=== PATIENT | female | born 1955 | race Caucasian/White ===

== ENCOUNTER → 2018-04-05 15:47 | Outpatient (CLI) | payer OTHER, SELFPAY ==
--- NOTE | 2018-04-05 15:47 | DT_ITS ---
This patient was seen during an EMR downtime April 03, 2018 - April 10, 2018. This patient may have a combination of paper and electronic documentation or all paper documentation. All documentation is viewable within the e-chart portion of [employer] for each patient visit.
--- NOTE | 2018-04-05 15:47 | DT_ITS ---
This patient was seen during an EMR downtime April 03, 2018 - April 10, 2018. This patient may have a combination of paper and electronic documentation or all paper documentation. All documentation is viewable within the e-chart portion of [employer] for each patient visit.
[2018-04-10 04:27] LABS: White Blood Count 8.2 K/mm3 (4.4-11.0)
[2018-04-10 04:28] LABS: Absolute Lymphocyte Count 2.32 X10^3/ul (0.83-4.51); Absolute Neutrophil Count 5.2 X10^3/uL (2.0-7.7); Basophil% 0.1 % (0-1); Eosinophils% 1.5 % (0-5); Hematocrit 42.3 % (37-47); Hemoglobin 12.9 g/dl (12.0-15.0); Lymphocyte # 2.32 X10^3/ul (4.0); Lymphocyte % 28.4 % (19-41); Mean Corp Hgb Conc 30.5 g/gl (32-36); Mean Corpuscular Hgb 28.3 pg (27.0-32.0); Mean Corpuscular Volume 92.8 fL (81-99); Mean Platelet Vol. 10.7 fl (6.2-12.0); Neutrophil # 5.21 X10^3/uL (2.7-7.7); Neutrophil % 63.8 % (47-70); POSITIVE COUNT NO; POSITIVE DIFFERENTIAL NO; POSITIVE MORPHOLOGY NO; Platelet Count 304 K/mm3 (150-450); RBC Distribution Width CV 14.3 % (11.6-14.6); RBC Distribution Width SD 46.7 fl (35.1-43.9); Red Blood Count 4.56 M/mm3 (4.2-5.4)
[2018-04-10 12:16] LABS: Vitamin B12 282 pg/mL (211-911); Vitamin D,25 Hydroxy 17.6 ng/mL (29.95-100.01)
[2018-04-10 16:20] LABS: BUN 15 mg/dL (7-18); BUN/Creat Ratio 21.1 RATIO (10-20); Creatinine, Serum 0.71 mg/dL (0.55-1.02); EST Glomerular Filtration Rate 88 mL/min (>60); Est Glom Filt Rate - Afr Amer 107 mL/min (>60); Glucose 85 mg/dL (74-106)
[2018-04-10 16:21] LABS: ALB/GLOB Ratio 0.9 RATIO (0.9-2.4); AST(SGOT) 22 U/L (15-37); Alanine Aminotransfer ALT/SGPT 31 U/L (13-56); Albumin, Serum 3.4 g/dL (3.2-5.0); Alkaline Phosphatase 136 U/L (45-117); Anion Gap 8 (5-15); Calcium,Total 8.5 mg/dL (8.5-10.1); Chloride 111 mmol/L (98-107); Ferritin 8 ng/mL (8-252); Globulin 3.8 g/dL (2.2-4.2); Iron 45 ug/dL (50-170); Potassium 4.2 mmol/L (3.5-5.1); Protein, Total 7.2 g/dL (6.4-8.2); Sodium Level 144 mmol/L (136-145); T4 Free Direct 0.88 ng/dL (0.76-1.46)
== END ==
PROVIDERS: Family Provider Family Medicine; PCP Family Medicine; Visit Provider Family Medicine
DX: E03.9 Hypothyroidism, unspecified (principal); M79.7 Fibromyalgia; D50.9 Iron deficiency anemia, unspecified; M25.50 Pain in unspecified joint; R53.83 Other fatigue; E55.9 Vitamin D deficiency, unspecified; E53.8 Deficiency of other specified B group vitamins
CPT/HCPCS: 36415; 80053; 82306; 82607; 82728; 83540; 84439; 84443; 85025

== ENCOUNTER → 2018-07-31 14:06 | Outpatient (CLI) | payer OTHER, SELFPAY ==
--- NOTE | 2018-07-31 14:09 | BI_ITS ---
MAMMOGRAPHY - BILATERAL SCREENING REASON FOR EXAM: Female, 63 years old. Routine annual screening examination. PERTINENT HISTORY: Sister with breast cancer. Bilateral breast reduction and breast implants. TECHNIQUE: Digital bilateral breast eliud (3D mammographic acquisition) in the CC and MLO projections. 2-D mediolateral oblique (MLO) and craniocaudad (CC) views of both breasts were obtained. CAD: Full Field Digital Mammography with Computer Added Detection was performed. COMPARISON: Comparison is made with prior examination dated April 21, 2016 and January 15, 2015. FINDINGS: Breast Composition: The breasts are almost entirely fatty. There are no dominant masses or suspicious calcifications. Stable appearance of the bilateral breast implants. No other significant abnormalities are identified. There has been no significant change since the prior study. BI/SCREENING MAMM (CAD), BILAT IMPRESSION: Stable bilateral screening mammogram. Yearly follow-up mammogram recommended. (A) ASSESSMENT CATEGORY: BIRADS Category 2: Benign. A letter regarding these results will be sent to the patient by the facility within 30 days. Approximately 10% of breast cancers are not detected by mammography. A normal mammogram should not delay biopsy of a clinically suspicious abnormality. [id number] Electronically Signed: Jan Wang MD at 15:43 EDT Tel [phone], Service support ,
== END ==
PROVIDERS: Family Provider Family Medicine; PCP Family Medicine; Visit Provider Family Medicine
DX: Z12.31 Encounter for screening mammogram for malignant neoplasm of breast (principal)
CPT/HCPCS: 77063; 77067

== ENCOUNTER → 2018-09-29 14:34 | Outpatient (CLI) | payer OTHER, SELFPAY ==
[2018-09-29 17:21] LABS: Absolute Lymphocyte Count 2.44 X10^3/ul (0.83-4.51); Absolute Neutrophil Count 6.3 X10^3/uL (2.0-7.7); Basophil# 0.02 X10^3/uL; Basophil% 0.2 % (0-1); Eosinophil# 0.22 X10^3/uL; Eosinophils% 2.3 % (0-5); Hematocrit 44.2 % (37-47); Hemoglobin 13.9 g/dl (12.0-15.0); Lymphocyte # 2.44 X10^3/ul (4.0); Lymphocyte % 25.4 % (19-41); Mean Corp Hgb Conc 31.4 g/gl (32-36); Mean Corpuscular Hgb 29.9 pg (27.0-32.0); Mean Corpuscular Volume 95.1 fL (81-99); Mean Platelet Vol. 10.3 fl (6.2-12.0); Monocyte# 0.59 X10^3/uL; Monocyte% 6.1 % (0-10); Neutrophil # 6.33 X10^3/uL (2.7-7.7); Neutrophil % 65.9 % (47-70); Platelet Count 286 K/mm3 (150-450); RBC Distribution Width CV 13.5 % (11.6-14.6); RBC Distribution Width SD 46.6 fl (35.1-43.9); Red Blood Count 4.65 M/mm3 (4.2-5.4); White Blood Count 9.6 K/mm3 (4.4-11.0)
[2018-09-29 17:24] LABS: POSITIVE COUNT NO; POSITIVE DIFFERENTIAL NO; POSITIVE MORPHOLOGY NO
[2018-09-29 17:39] LABS: Vitamin B12 894 pg/mL (211-911); Vitamin D,25 Hydroxy 61.3 ng/mL (29.95-100.01)
[2018-09-29 17:44] LABS: Ferritin 62 ng/mL (8-252); T4 Free Direct 0.86 ng/dL (0.76-1.46); Thyroid Stim Hormone (TSH) 1.25 uIU/mL (0.358-3.74)
--- OUTSIDE RECORDS SUMMARY | 2018-11-24 14:03 | XMS RPT_ITS ---
:1955 Author Organization [facility] Care Team Providers Name Role Phone Payal Ny Attending Unavailable Payal Ny Referring Unavailable Malys, Payal Primary Care Unavailable Malys, Payal Attending Unavailable Malys, Payal Primary Care Unavailable Danielle Gracia Attending Unavailable Malys, Payal Primary Care Unavailable PROBLEMS PROBLEMS DATE TYPE CONDITION / CODE ATTENDING STATUS SOURCE 09/29/2018 Unknown E03.9 - Miedel, Danielle Active [place] Hypothyroidism, Community unspecified / Hospital E03.9(ICD-10) Repository 09/29/2018 Unknown D50.9 - Iron Miedel, Danielle Active [place] deficiency Community anemia, Hospital unspecified / Repository D50.9(ICD-10) 09/29/2018 Unknown E55.9 - Vitamin D Miedel, Danielle Active [place] deficiency, Community unspecified / Hospital E55.9(ICD-10) Repository 09/29/2018 Unknown E53.8 - Miedel, Danielle Active [place] Deficiency of Community other specified B Hospital group vitamins / Repository E53.8(ICD-10) PROCEDURES PROCEDURES No Procedure Records FoundRESULTS RESULTS CBC W/DIFF, AUTOMATED Collected: 09/29/2018 Status: F Source: [place] 2:36 PM [facility] REPOSITORY TYPE CODE TESTS RESULT OUT OF RANGE REFERENCE UNITS LAB L100.1000 4.4-11.0 K/mm3 Normal WBC 9.6 LAB L100.1200 4.2-5.4 M/mm3 Normal RBC 4.65 LAB L100.1300 12.0-15.0 g/dl Normal HGB 13.9 LAB L100.1400 37-47 % Normal HCT 44.2 LAB L100.1500 81-99 fL Normal MCV 95.1 LAB L100.1600 27.0-32.0 pg Normal MCH 29.9 LAB L100.1700 32-36 g/gl Low MCHC 31.4 LAB L100.1810 11.6-14.6 % Normal RDW CV 13.5 LAB L100.1820 35.1-43.9 fl High RDW SD 46.6 LAB L100.1900 150-450 K/mm3 Normal PLT 286 LAB L100.2000 6.2-12.0 fl Normal MPV 10.3 LAB L100.2100 47-70 % Normal NEUT% 65.9 LAB L100.2200 19-41 % Normal LY% 25.4 LAB L100.2300 0-10 % Normal MONO% 6.1 LAB L100.2400 0-5 % Normal EO% 2.3 LAB L100.2500 0-1 % Normal BASO% 0.2 LAB L100.2550 0.0-0.9 % Normal IM GRAN % 0.100 Result Comment: IG% - Immature Granulocytes (promyelocytes, myelocytes and metamyelocytes) > 1% indicates that a LEFT SHIFT is Present. LAB L100.2620 2.0-7.7 X10 3/uL Normal Absolute Neut 6.3 LAB L100.2720 0.83-4.51 X10 3/ul Normal Absolute Lymph 2.44 Performed By: #### L100.0100 #### [facility] [place], [address] VITAMIN B12 Collected: 09/29/2018 Status: F Source: JESSICA 2:36 PM [facility] REPOSITORY TYPE CODE TESTS RESULT OUT OF RANGE REFERENCE UNITS LAB L503.0105 211-911 pg/mL Normal Vitamin B12 894 Performed By: #### L503.0105, L506.1000 #### [facility] [address] [place], [address] VITAMIN D,25 HYDROXY Collected: 09/29/2018 Status: F Source: JESSICA 2:36 PM [facility] REPOSITORY TYPE CODE TESTS RESULT OUT OF RANGE REFERENCE UNITS LAB L506.1000 29.95-100.01 ng/mL Normal Vitamin D 61.3 25-OH Result Comment: Vitamin D 25(OH) Status Range Deficiency <20 ng/mL (50nmol/L) Insuffciency 20 - 30 ng/mL (50 - 75 nmol/L) Sufficiency 30 - 100 ng/mL (75 - 250 nmol/L) Toxicity >100 ng/mL (>250 nmol/L) Performed By: #### L503.0105, L506.1000 #### [facility] [address] [place], [address] THYROID STIM HORMONE Collected: 09/29/2018 Status: F Source: JESSICA (TSH) 2:36 PM [facility] REPOSITORY TYPE CODE TESTS RESULT OUT OF RANGE REFERENCE UNITS LAB L501.9520 0.358-3.74 uIU/mL Normal TSH 1.25 Performed By: #### L501.9520, L503.6550, L506.0400 #### [facility] [address] [place], [address] FERRITIN Collected: 09/29/2018 Status: F Source: JESSICA 2:36 PM [facility] REPOSITORY TYPE CODE TESTS RESULT OUT OF RANGE REFERENCE UNITS LAB L503.6550 8-252 ng/mL Normal FERRITIN 62 Performed By: #### L501.9520, L503.6550, L506.0400 #### [facility] [address] [place], [address] T4 FREE DIRECT Collected: 09/29/2018 Status: F Source: JESSICA 2:36 PM [facility] REPOSITORY TYPE CODE TESTS RESULT OUT OF RANGE REFERENCE UNITS LAB L506.0400 0.76-1.46 ng/dL Normal T4 FREE 0.86 DIRECT Performed By: #### L501.9520, L503.6550, L506.0400 #### [facility] [address] [place], [address] SCREENING MAMM (CAD), Observed: 07/31/2018 Status: F Source: [place] BILAT 2:09 PM [facility] REPOSITORY [facility] Imaging Services [address] [place] [address] SCREENING MAMM (CAD), BILAT MR#: [id number] Acct: [id number] Name: ENRICO LINDSEY Rep #: [id number] : 1955 F 63 From: Jan Wang MD PCP: Payal Ny DO Status: REG CLI Study: SCREENING MAMM (CAD), BILAT Date of Exam: 07/31/18 Exam# [id number] Ordering Dr: Payal Ny DO MAMMOGRAPHY - BILATERAL SCREENING REASON FOR EXAM: Female, 63 years old. Routine annual screening examination. PERTINENT HISTORY: Sister with breast cancer. Bilateral breast reduction and breast implants. TECHNIQUE: Digital bilateral breast eliud (3D mammographic acquisition) in the CC and MLO projections. 2-D mediolateral oblique (MLO) and craniocaudad (CC) views of both breasts were obtained. CAD: Full Field Digital Mammography with Computer Added Detection was performed. COMPARISON: Comparison is made with prior examination dated April 21, 2016 and January 15, 2015. FINDINGS: Breast Composition: The breasts are almost entirely fatty. There are no dominant masses or suspicious calcifications. Stable appearance of the bilateral breast implants. No other significant abnormalities are identified. There has been no significant change since the prior study. BI/SCREENING MAMM (CAD), BILAT IMPRESSION: Stable bilateral screening mammogram. Yearly follow-up mammogram recommended. (A) ASSESSMENT CATEGORY: BIRADS Category 2: Benign. A letter regarding these results will be sent to the patient by the facility within 30 days. Approximately 10% of breast cancers are not detected by mammography. A normal mammogram should not delay biopsy of a clinically suspicious abnormality. [id number] Electronically Signed: Jan Wang MD at 15:43 EDT Tel [phone], Service support , CC: Payal Ny DO Waybill Clerk: Signed DOWNTIME REPORT Observed: 04/20/2018 Status: F Source: JESSICA 2:48 PM [facility] REPOSITORY [facility] Medical Records Department [address] [place] [address] Downtime Report MR#: [id number] Acct: [id number] Name: ENRICO LINDSEY Mathew Rep #: [id number] : 1955 63 From: Juan C Hagen PCP: Payal Ny DO Status: REG CLI This patient was seen during an EMR downtime April 03, 2018 - April 10, 2018. This patient may have a combination of paper and electronic documentation or all paper documentation. All documentation is viewable within the e-chart portion of [employer] for each patient visit. DOWNTIME REPORT Observed: 04/20/2018 Status: F Source: JESSICA 2:35 PM [facility] REPOSITORY [facility] Medical Records Department [address] [place] [address] Downtime Report MR#: [id number] Acct: [id number] Name: ENRICO LINDSEY Rep #: [id number] : 1955 63 From: Juan C Hagen PCP: Payal Ny DO Status: REG CLI This patient was seen during an EMR downtime April 03, 2018 - April 10, 2018. This patient may have a combination of paper and electronic documentation or all paper documentation. All documentation is viewable within the e-chart portion of [employer] for each patient visit. VITAMIN B12 Collected: 04/05/2018 Status: F Source: JESSICA 3:47 PM [facility] REPOSITORY TYPE CODE TESTS RESULT OUT OF RANGE REFERENCE UNITS LAB L503.0105 211-911 pg/mL Normal Vitamin B12 282 Performed By: #### L503.0105, L506.1000 #### [facility] [address] [place], [place], [address] VITAMIN D,25 HYDROXY Collected: 04/05/2018 Status: F Source: [place] 3:47 PM [facility] REPOSITORY TYPE CODE TESTS RESULT OUT OF REFERENCE UNITS RANGE LAB L506.1000 29.95-100.01 ng/mL Low Vitamin D 17.6 25-OH Result Comment: Vitamin D 25(OH) Status Range Deficiency <20 ng/mL (50nmol/L) Insuffciency 20 - 30 ng/mL (50 - 75 nmol/L) Sufficiency 30 - 100 ng/mL (75 - 250 nmol/L) Toxicity >100 ng/mL (>250 nmol/L) Performed By: #### L503.0105, L506.1000 #### [facility] [address] [place], [address] COMPREHENSIVE METABOLIC Collected: 04/05/2018 Status: F Source: [facility] 3:47 PM [facility] REPOSITORY Order Comment: RESULT(S) PREVIOUSLY REPORTED ON MANUAL REQUISITION DURING DOWNTIME. TYPE CODE TESTS RESULT OUT OF RANGE REFERENCE UNITS LAB L501.0100 74-106 mg/dL Normal GLU 85 Result Comment: Please note revised GLUCOSE reference range effective 2017. LAB L501.1000 7-18 mg/dL Normal BUN 15 LAB L501.1100 0.55-1.02 mg/dL Normal CREAT,SERUM 0.71 Result Comment: The validity of the calculated GFR AND GFRAA in patients over 70 years has not been determined. Clinical correlation is essential. LAB L501.1110 >60 mL/min Normal EST GFR 88 LAB L501.1115 >60 mL/min Normal EST GFR - AA 107 LAB L501.1300 10-20 RATIO High BUN/CRE 21.1 LAB L501.1500 6.4-8.2 g/dL Normal T PROT 7.2 LAB L501.1800 3.2-5.0 g/dL Normal ALB 3.4 LAB L501.1950 2.2-4.2 g/dL Normal GLOB 3.8 LAB L501.2000 0.9-2.4 RATIO Normal A/G 0.9 LAB L501.2200 8.5-10.1 mg/dL Normal CA 8.5 LAB L501.4100 15-37 U/L Normal AST 22 LAB L501.4305 45-117 U/L High ALK P 136 LAB L501.4405 13-56 U/L Normal ALT 31 LAB L501.4600 0.20-1.00 mg/dL Normal T BILI 0.20 LAB L501.5300 136-145 mmol/L Normal NA 144 LAB L501.5600 3.5-5.1 mmol/L Normal K 4.2 LAB L501.5900 98-107 mmol/L High CL 111 LAB L501.6100 21.0-32.0 mmol/L Normal CO2 25.0 LAB L501.6200 5-15 Normal GAP 8 Performed By: #### L500.4050, L501.9520, L503.6150, L503.6550, L506.0400 #### [facility] [place], [place], [address] THYROID STIM HORMONE Collected: 04/05/2018 Status: F Source: [place] (TSH) 3:47 PM [facility] REPOSITORY Order Comment: RESULT(S) PREVIOUSLY REPORTED ON MANUAL REQUISITION DURING DOWNTIME. TYPE CODE TESTS RESULT OUT OF RANGE REFERENCE UNITS LAB L501.9520 0.358-3.74 uIU/mL High TSH 4.50 Performed By: #### L500.4050, L501.9520, L503.6150, L503.6550, L506.0400 #### [facility] [address] [facility] [place], [place], [id number] IRON Collected: 04/05/2018 Status: F Source: [place] 3:47 PM [facility] REPOSITORY Order Comment: RESULT(S) PREVIOUSLY REPORTED ON MANUAL REQUISITION DURING DOWNTIME. TYPE CODE TESTS RESULT OUT OF RANGE REFERENCE UNITS LAB L503.6150 50-170 ug/dL Low IRON 45 Performed By: #### L500.4050, L501.9520, L503.6150, L503.6550, L506.0400 #### [facility] [address] [place], [address] FERRITIN Collected: 04/05/2018 Status: F Source: [place] 3:47 PM [facility] REPOSITORY Order Comment: RESULT(S) PREVIOUSLY REPORTED ON MANUAL REQUISITION DURING DOWNTIME. TYPE CODE TESTS RESULT OUT OF RANGE REFERENCE UNITS LAB L503.6550 8-252 ng/mL Normal FERRITIN 8 Performed By: #### L500.4050, L501.9520, L503.6150, L503.6550, L506.0400 #### [facility] [address] [place], [address] T4 FREE DIRECT Collected: 04/05/2018 Status: F Source: [place] 3:47 PM [facility] REPOSITORY Order Comment: RESULT(S) PREVIOUSLY REPORTED ON MANUAL REQUISITION DURING DOWNTIME. TYPE CODE TESTS RESULT OUT OF RANGE REFERENCE UNITS LAB L506.0400 0.76-1.46 ng/dL Normal T4 FREE 0.88 DIRECT Performed By: #### L500.4050, L501.9520, L503.6150, L503.6550, L506.0400 #### [facility] [address] [facility] [place], [address] CBC W/DIFF, AUTOMATED Collected: 04/05/2018 Status: F Source: [place] 3:47 PM [facility] REPOSITORY Order Comment: RESULT(S) PREVIOUSLY REPORTED ON MANUAL REQUISITION DURING DOWNTIME. TYPE CODE TESTS RESULT OUT OF RANGE REFERENCE UNITS LAB L100.1000 4.4-11.0 K/mm3 Normal WBC 8.2 LAB L100.1200 4.2-5.4 M/mm3 Normal RBC 4.56 LAB L100.1300 12.0-15.0 g/dl Normal HGB 12.9 LAB L100.1400 37-47 % Normal HCT 42.3 LAB L100.1500 81-99 fL Normal MCV 92.8 LAB L100.1600 27.0-32.0 pg Normal MCH 28.3 LAB L100.1700 32-36 g/gl Low MCHC 30.5 LAB L100.1810 11.6-14.6 % Normal RDW CV 14.3 LAB L100.1820 35.1-43.9 fl High RDW SD 46.7 LAB L100.1900 150-450 K/mm3 Normal PLT 304 LAB L100.2000 6.2-12.0 fl Normal MPV 10.7 LAB L100.2100 47-70 % Normal NEUT% 63.8 LAB L100.2200 19-41 % Normal LY% 28.4 LAB L100.2300 0-10 % Normal MONO% 6.0 LAB L100.2400 0-5 % Normal EO% 1.5 LAB L100.2500 0-1 % Normal BASO% 0.1 LAB L100.2550 0.0-0.9 % Normal IM GRAN % 0.200 Result Comment: IG% - Immature Granulocytes (promyelocytes, myelocytes and metamyelocytes) > 1% indicates that a LEFT SHIFT is Present. LAB L100.2620 2.0-7.7 X10 3/uL Normal Absolute Neut 5.2 LAB L100.2720 0.83-4.51 X10 3/ul Normal Absolute Lymph 2.32 Performed By: #### L100.0100 #### [facility] [address] [place], [address] ALLERGIES ALLERGIES No Allergies Records FoundENCOUNTERS ENCOUNTERS ADMIT/DISCHARGE ACCOUNT ADMITTING ENCOUNTER LOCATION SOURCE NUMBER CLASS 09/29/2018 [id number] [facility] 3 [facility] ing:BFHLAB Repository 07/31/2018 [id number] [facility] 7 [facility] ing:OPBI Repository 04/05/2018 [id number] [facility] 0 [facility] ing:BFHLAB Repository PAYERS PAYERS ENCOUNTER GUARANTOR PAYER SUBSCRIBER SOURCE 09/29/2018 ENRICO Carmona [id number] Primary ENRICO PICKENSB: [facility] 83UNIT Insurance:SCHEDit [id number], Number: [place] [facility] [address]Buc: [id number] Repository Date:9632-85-98IL [address]OX () [place], [place] [address]LT: 09/29/2018 Secondary NOT GIVENUNK [place] Insurance:SELF PAY Community [facility] Number: Effective Repository Date:2018-09-29 07/31/2018 Ruddy Lindsey1817 Primary ENRICO PICKENSB: [address] Insurance:CIGNAPolicy [id number] [facility] [address]Unit Number: [address], [id number] Repository [place] [address]Rih: Date:1570-96-96[address] () [address]HP: 07/31/2018 Secondary NOT GIVENUNK [place] Insurance:SELF PAY Community [facility] Number: Effective Repository Date:2018-07-04 04/05/2018 Ruddy Lindsey1817 Primary ENRICO PICKENSB: [place] [address] Insurance:CIGNAPolicy [id number] [facility] 83Unit Number: [address], [id number] Repository [place] [address]Ody: Date:7339-70-61WI [address]UKDUHNF[address]HEL[address]URBIN () [address]ZY: 04/05/2018 Secondary NOT GIVENUNK [place] Insurance:SELF PAY Community [facility] Number: Effective Repository Date:2018-04-05
== END ==
PROVIDERS: Family Provider Family Medicine; PCP Family Medicine; Visit Provider Family Medicine
DX: E03.9 Hypothyroidism, unspecified (principal); D50.9 Iron deficiency anemia, unspecified; E55.9 Vitamin D deficiency, unspecified; E53.8 Deficiency of other specified B group vitamins
CPT/HCPCS: 36415; 82306; 82607; 82728; 84439; 84443; 85025

== ENCOUNTER → 2019-09-28 11:57 | Outpatient (CLI) | payer MEDICARE, SELFPAY ==
--- NOTE | 2019-09-28 12:00 | BI_ITS ---
MAMMOGRAPHY - BILATERAL SCREENING 3-D TOMOSYNTHESIS REASON FOR EXAM: Female, 64 years old. PERTINENT HISTORY: No significant family history. TECHNIQUE: 2-D mammograms and 3-D Tomosynthesis of the breast (s) were performed. CAD was performed. COMPARISON: July 31, 2018. FINDINGS: Study of both breasts by means of 4 field digital mammography craniocaudad and mediolateral oblique projections were obtained including KAVYA views. The breast composition is fatty. No dense spiculated masses or suspicious microcalcifications are identified. No architectural distortion is identified. There is no skin thickening or nipple retraction. Bilateral breast implants seen which are intact. There has been no significant change since the prior study of July 31, 2018. BI/SCREEN MAMM (CAD) W/CHONG BILAT IMPRESSION: No mammographic signs of malignancy. Routine yearly mammograms recommended. ASSESSMENT CATEGORY: BIRADS Category 1: Negative. A letter regarding these results will be sent to the patient by the facility within 30 days. FOLLOW UP RECOMMENDATION: Yearly follow up mammogram recommended. (A) Approximately 10% of breast cancers are not detected by mammography. A normal mammogram should not delay biopsy of a clinically suspicious abnormality. Electronically Signed: Eugenie Zuniga, at 15:26 EST Tel , Service support ,
== END ==
PROVIDERS: Family Provider Family Medicine; PCP Family Medicine; Referring Provider Family Medicine; Visit Provider Family Medicine
DX: Z12.31 Encounter for screening mammogram for malignant neoplasm of breast (principal)
CPT/HCPCS: 77063; 77067

== ENCOUNTER → 2020-07-21 | Outpatient (CLI) | payer MEDICARE, SELFPAY ==
[2020-07-21 17:36] LABS: Absolute Lymphocyte Count 2.54 X10^3/uL (0.83-4.51); Absolute Neutrophil Count 5.1 X10^3/uL (2.0-7.7); Basophil# 0.02 X10^3/uL; Basophil% 0.2 % (0-1); Eosinophil# 0.13 X10^3/uL; Eosinophils% 1.6 % (0-5); Hematocrit 42.8 % (37-47); Hemoglobin 13.7 g/dL (12.0-15.0); Lymphocyte # 2.54 X10^3/ul (4.0); Lymphocyte % 30.7 % (19-41); Mean Corpuscular Hgb 30.1 pg (27.0-32.0); Mean Corpuscular Volume 94.1 fL (81-99); Mean Platelet Vol. 10.7 fl (6.2-12.0); Monocyte# 0.45 X10^3/uL; Monocyte% 5.4 % (0-10); NRBC Flagged by Analyzer 0 % (0-5); Neutrophil # 5.11 X10^3/uL (2.7-7.7); Neutrophil % 61.7 % (47-70); Platelet Count 246 K/mm3 (150-450); RBC Distribution Width CV 12.9 % (11.6-14.6); RBC Distribution Width SD 44.4 fl (35.1-43.9); Red Blood Count 4.55 M/mm3 (4.2-5.4); White Blood Count 8.3 K/mm3 (4.4-11.0)
[2020-07-21 17:46] LABS: Vitamin B12 212 pg/mL (211-911); Vitamin D,25 Hydroxy 31.7 ng/mL
[2020-07-21 18:08] LABS: AST(SGOT) 23 U/L (15-37); Alanine Aminotransfer ALT/SGPT 32 U/L (13-56); Albumin, Serum 3.4 g/dL (3.2-5.0); Alkaline Phosphatase 142 U/L (45-117); Anion Gap 4 (5-15); BUN 13 mg/dL (7-18); BUN/Creat Ratio 16.3 RATIO (10-20); Calcium,Total 8.5 mg/dL (8.5-10.1); Chloride 112 mmol/L (98-107); EST Glomerular Filtration Rate 77 mL/min (>60); Est Glom Filt Rate - Afr Amer 93 mL/min (>60); Globulin 3.4 g/dL (2.2-4.2); Glucose 74 mg/dL (74-106); Iron 79 ug/dL (50-170); Potassium 3.9 mmol/L (3.5-5.1); Protein, Total 6.8 g/dL (6.4-8.2); Sodium Level 142 mmol/L (136-145); T4 Free Direct 1.11 ng/dL (0.76-1.46); Thyroid Stim Hormone (TSH) 0.89 uIU/mL (0.358-3.74)
== END | disposition home or self-care (01) ==
LOC: BFHLAB 15:02
PROVIDERS: PCP Family Medicine; Visit Provider Family Medicine
DX: E03.9 Hypothyroidism, unspecified (principal); D50.9 Iron deficiency anemia, unspecified; E53.8 Deficiency of other specified B group vitamins; E55.9 Vitamin D deficiency, unspecified; Z98.84 Bariatric surgery status; Z51.81 Encounter for therapeutic drug level monitoring
CPT/HCPCS: 36415; 80053; 82306; 82607; 83540; 84439; 84443; 84481; 85025

== ENCOUNTER → 2020-12-11 11:47 | Outpatient (CLI) | payer MEDICARE, SELFPAY ==
--- NOTE | 2020-12-11 11:50 | BI_ITS ---
MAMMOGRAPHY - BILATERAL SCREENING REASON FOR EXAM: Female, 65 years old. Routine annual screening examination. PERTINENT HISTORY: Sister with breast cancer. History of prior bilateral breast reduction surgery and implants. TECHNIQUE: Digital bilateral breast chong (3D mammographic acquisition) in the CC and MLO projections. 2-D mediolateral oblique (MLO) and craniocaudad (CC) views of both breasts were obtained. CAD: Full Field Digital Mammography with Computer Added Detection was performed. COMPARISON: Comparison is made with prior examination dated 09/28/2019 and 07/31/2018. FINDINGS: Breast Composition: The breasts are almost entirely fatty. There are no dominant masses or suspicious calcifications. Stable benign appearing bilateral breast implants. No other significant abnormalities are identified. There has been no significant change since the prior study. BI/SCRN MAMM (CAD)W/CHONG BILAT IMPRESSION: Stable bilateral screening mammogram. Yearly follow-up mammogram recommended. (A) ASSESSMENT CATEGORY: BIRADS Category 2: Benign. A letter regarding these results will be sent to the patient by the facility within 30 days. Approximately 10% of breast cancers are not detected by mammography. A normal mammogram should not delay biopsy of a clinically suspicious abnormality. [id number] Electronically Signed: Jan Wang MD at 15:31 EST , Service support ,
== END ==
PROVIDERS: PCP Family Medicine; Referring Provider Family Medicine; Visit Provider Family Medicine
DX: Z12.31 Encounter for screening mammogram for malignant neoplasm of breast (principal)
CPT/HCPCS: 77063; 77067

== ENCOUNTER → 2022-03-01 | Outpatient (CLI) | payer MEDICARE, BC, SELFPAY ==
--- NOTE | 2022-03-01 13:04 | BI_ITS ---
MAMMOGRAPHY - BILATERAL SCREENING REASON FOR EXAM: Female, 67 years old. Routine annual screening examination. PERTINENT HISTORY: Sister with breast cancer. History of bilateral breast implants and prior breast reduction surgery. TECHNIQUE: Digital bilateral breast chong (3D mammographic acquisition) in the CC and MLO projections. 2-D mediolateral oblique (MLO) and craniocaudad (CC) views of both breasts were obtained. CAD: Full Field Digital Mammography with Computer Added Detection was performed. COMPARISON: Comparison is made with prior study dated 12/11/2020 and 09/28/2019. FINDINGS: Breast Composition: The breasts are almost entirely fatty. There are no dominant masses or suspicious calcifications. Stable appearance of the bilateral breast implants. No other significant abnormalities are identified. There has been no significant change since the prior study. BI/SCRN MAMM (CAD)W/CHONG BILAT IMPRESSION: Stable bilateral screening mammogram. Yearly follow-up mammogram recommended. (A) ASSESSMENT CATEGORY: BIRADS Category 2: Benign. A letter regarding these results will be sent to the patient by the facility within 30 days. Approximately 10% of breast cancers are not detected by mammography. A normal mammogram should not delay biopsy of a clinically suspicious abnormality. [id number] Electronically Signed: Jan Wang MD at 13:43 EDT ,
== END | disposition home or self-care (01) ==
LOC: OPBI 13:03
PROVIDERS: PCP Family Medicine; Referring Provider Family Medicine; Visit Provider Family Medicine
DX: Z12.31 Encounter for screening mammogram for malignant neoplasm of breast (principal); Z98.82 Breast implant status; Z80.3 Family history of malignant neoplasm of breast
CPT/HCPCS: 77063; 77067

== ENCOUNTER → 2023-01-31 | Outpatient (CLI) | payer MEDICARE, BC, SELFPAY ==
[2023-01-31 15:18] LABS: Absolute Lymphocyte Count 2.56 X10^3/uL (0.83-4.51); Absolute Neutrophil Count 3.6 X10^3/uL (2.0-7.7); Basophil# 0.02 X10^3/uL; Basophil% 0.3 % (0-1); Eosinophil# 0.08 X10^3/uL; Eosinophils% 1.2 % (0-5); Hematocrit 47.4 % (37-47); Hemoglobin 14.7 g/dL (12.0-15.0); Lymphocyte # 2.56 X10^3/ul (0.83-4.51); Lymphocyte % 38.7 % (19-41); Mean Corpuscular Hgb 31.6 pg (27.0-32.0); Mean Corpuscular Volume 101.9 fL (81-99); Mean Platelet Vol. 10.8 fl (6.2-12.0); Monocyte# 0.36 X10^3/uL; Monocyte% 5.4 % (0-10); NRBC Flagged by Analyzer 0 % (0-5); Neutrophil # 3.58 X10^3/uL (2.7-7.7); Neutrophil % 54.1 % (47-70); Platelet Count 267 K/mm3 (150-450); RBC Distribution Width CV 12.7 % (11.6-14.6); Red Blood Count 4.65 M/mm3 (4.2-5.4); White Blood Count 6.6 K/mm3 (4.4-11.0)
[2023-01-31 15:52] LABS: Vitamin B12 305 pg/mL (211-911)
[2023-01-31 16:08] LABS: Erythrocyte Sedimentation Rate 12 mm/hr (0-30)
[2023-01-31 16:24] LABS: ALB/GLOB Ratio 0.9 RATIO (0.9-2.4); AST(SGOT) 32 U/L (15-37); Alanine Aminotransfer ALT/SGPT 40 U/L (13-56); Albumin, Serum 3.6 g/dL (3.2-5.0); Alkaline Phosphatase 104 U/L (45-117); Anion Gap 6 (5-15); BUN 17 mg/dL (7-18); BUN/Creat Ratio 20.4 RATIO (10-20); CRP, High Sensitivity Cardiac < 0.16 mg/L; Chloride 109 mmol/L (98-107); Creatinine, Serum 0.83 mg/dL (0.55-1.02); EST Glomerular Filtration Rate 72 mL/min (>60); Est Glom Filt Rate - Afr Amer 87 mL/min (>60); Ferritin 15 ng/mL (8-252); Free T3 2.1 pg/mL (2.18-3.98); Globulin 4.2 g/dL (2.2-4.2); Glucose 90 mg/dL (74-106); Iron 108 ug/dL (50-170); Potassium 3.8 mmol/L (3.5-5.1); Protein, Total 7.8 g/dL (6.4-8.2); Sodium Level 141 mmol/L (136-145); T4 Free Direct 1.19 ng/dL (0.76-1.46); Thyroid Stim Hormone (TSH) 0.61 uIU/mL (0.358-3.74)
== END | disposition home or self-care (01) ==
LOC: BFHLAB 10:55
PROVIDERS: PCP Family Medicine; Referring Provider Family Medicine; Visit Provider Family Medicine
DX: E03.9 Hypothyroidism, unspecified (principal); D50.9 Iron deficiency anemia, unspecified; E53.8 Deficiency of other specified B group vitamins; E55.9 Vitamin D deficiency, unspecified; Z98.84 Bariatric surgery status; Z51.81 Encounter for therapeutic drug level monitoring
CPT/HCPCS: 36415; 80053; 82306; 82607; 82728; 83540; 84439; 84443; 84481; 85025; 85652; 86141

== ENCOUNTER → 2023-03-18 | Outpatient (CLI) | payer MEDICARE, BC, SELFPAY ==
--- NOTE | 2023-03-18 12:31 | BI_ITS ---
MAMMOGRAPHY - BILATERAL SCREENING REASON FOR EXAM: Female, 68 years old. Routine annual screening examination. PERTINENT HISTORY: Sister with breast cancer. History of prior bilateral breast reduction. Bilateral breast implants. TECHNIQUE: Digital bilateral breast chong (3D mammographic acquisition) in the CC and MLO projections. 2-D mediolateral oblique (MLO) and craniocaudad (CC) views of both breasts were obtained. CAD: Full Field Digital Mammography with Computer Added Detection was performed. COMPARISON: Comparison is made with prior study March 01, 2022 and December 11, 2020. FINDINGS: Breast Composition: The breasts are almost entirely fatty. There are no dominant masses or suspicious calcifications. Stable appearance of the bilateral breast implants. No other significant abnormalities are identified. There has been no significant change since the prior study. BI/SCRN MAMM (CAD)W/CHONG BILAT IMPRESSION: Stable bilateral screening mammogram. Yearly follow-up mammogram recommended. (A) ASSESSMENT CATEGORY: BIRADS Category 2: Benign. A letter regarding these results will be sent to the patient by the facility within 30 days. Approximately 10% of breast cancers are not detected by mammography. A normal mammogram should not delay biopsy of a clinically suspicious abnormality. [id number] Electronically Signed: Jan Wang MD at 13:12 EDT ,
== END | disposition home or self-care (01) ==
LOC: OPBI 12:30
PROVIDERS: PCP Family Medicine; Referring Provider Family Medicine; Visit Provider Family Medicine
DX: Z12.31 Encounter for screening mammogram for malignant neoplasm of breast (principal)
CPT/HCPCS: 77063; 77067

== ENCOUNTER → 2024-03-21 | Outpatient (CLI) | payer MEDICARE, BC, SELFPAY ==
[2024-03-21 17:40] LABS: Absolute Lymphocyte Count 2.34 X10^3/uL (0.83-4.51); Absolute Neutrophil Count 3.7 X10^3/uL (2.0-7.7); Basophil# 0.01 X10^3/uL; Basophil% 0.2 % (0-1); Eosinophil# 0.11 X10^3/uL; Eosinophils% 1.7 % (0-5); Hematocrit 42.9 % (37-47); Hemoglobin 13.1 g/dL (12.0-15.0); Lymphocyte # 2.34 X10^3/ul (0.83-4.51); Lymphocyte % 35.6 % (19-41); Mean Corp Hgb Conc 30.5 g/dL (32-36); Mean Corpuscular Hgb 30.4 pg (27.0-32.0); Mean Corpuscular Volume 99.5 fL (81-99); Mean Platelet Vol. 10.9 fl (6.2-12.0); Monocyte# 0.41 X10^3/uL; Monocyte% 6.2 % (0-10); NRBC Flagged by Analyzer 0 % (0-5); Neutrophil % 56.1 % (47-70); Platelet Count 263 K/mm3 (150-450); RBC Distribution Width SD 48.1 fl (35.1-43.9); Red Blood Count 4.31 M/mm3 (4.2-5.4); White Blood Count 6.6 K/mm3 (4.4-11.0)
[2024-03-21 18:18] LABS: AST(SGOT) 19 U/L (15-37); Alanine Aminotransfer ALT/SGPT 25 U/L (13-56); Albumin, Serum 3.4 g/dL (3.2-5.0); Alkaline Phosphatase 129 U/L (45-117); Anion Gap 5 (5-15); BUN 19 mg/dL (7-18); BUN/Creat Ratio 26.5 RATIO (10-20); Chloride 111 mmol/L (98-107); Creatinine, Serum 0.72 mg/dL (0.55-1.02); EST Glomerular Filtration Rate 86 mL/min (>60); Est Glom Filt Rate - Afr Amer 104 mL/min (>60); Free T3 1.9 pg/mL (2.18-3.98); Globulin 3.3 g/dL (2.2-4.2); Glucose 96 mg/dL (74-106); Potassium 4.2 mmol/L (3.5-5.1); Protein, Total 6.7 g/dL (6.4-8.2); Sodium Level 140 mmol/L (136-145); T4 Free Direct 1.29 ng/dL (0.76-1.46); Thyroid Stim Hormone (TSH) 1.37 uIU/mL (0.358-3.74)
[2024-03-21 18:28] LABS: Vitamin B12 > 2000 pg/mL (211-911)
== END | disposition home or self-care (01) ==
LOC: BFHLAB 14:13
PROVIDERS: PCP Family Medicine; Visit Provider Family Medicine
DX: E03.9 Hypothyroidism, unspecified (principal); E53.8 Deficiency of other specified B group vitamins; E55.9 Vitamin D deficiency, unspecified; Z51.81 Encounter for therapeutic drug level monitoring
CPT/HCPCS: 36415; 80053; 82607; 84439; 84443; 84481; 85025

== ENCOUNTER → 2024-05-24 | Outpatient (CLI) | payer MEDICARE, BC, SELFPAY ==
--- NOTE | 2024-05-24 11:52 | BI_ITS ---
MAMMOGRAPHY - BILATERAL SCREENING REASON FOR EXAM: Female, 69 years old. Routine annual screening examination. PERTINENT HISTORY: Sister with breast cancer. Prior bilateral breast reduction surgery and implants. TECHNIQUE: Digital bilateral breast chong (3D mammographic acquisition) in the CC and MLO projections. 2-D mediolateral oblique (MLO) and craniocaudad (CC) views of both breasts were obtained. CAD: Full Field Digital Mammography with Computer Added Detection was performed. COMPARISON: Comparison is made with prior studies of March 18, 2023 and March 01, 2022. FINDINGS: Breast Composition: The breasts are almost entirely fatty. There are no dominant masses or suspicious calcifications. Stable appearance of the bilateral breast implants. No other significant abnormalities are identified. There has been no significant change since the prior study. BI/SCRN MAMM (CAD)W/CHONG BILAT IMPRESSION: Stable bilateral screening mammogram. Yearly follow-up mammogram recommended. (A) ASSESSMENT CATEGORY: BIRADS Category 2: Benign. A letter regarding these results will be sent to the patient by the facility within 30 days. Approximately 10% of breast cancers are not detected by mammography. A normal mammogram should not delay biopsy of a clinically suspicious abnormality. [id number] Electronically Signed: Jan Wang MD at 13:30 EDT ,
== END | disposition home or self-care (01) ==
LOC: OPBI 11:51
PROVIDERS: PCP Family Medicine; Referring Provider Family Medicine; Visit Provider Family Medicine
DX: Z12.31 Encounter for screening mammogram for malignant neoplasm of breast (principal)
CPT/HCPCS: 77063; 77067

== ENCOUNTER → 2025-06-12 | Outpatient (CLI) | payer MEDICARE, BC, SELFPAY ==
--- NOTE | 2025-06-12 11:52 | BI_ITS ---
EXAM: SCRN MAMM (CAD)W/CHONG BILAT DATE: 06/12/2025 CLINICAL HISTORY: F, Age 70 y/o , SCREENING TECHNIQUE: SCRN MAMM (CAD)W/CHONG BILAT COMPARISON: Prior exam(s) WERE COMPARED FINDINGS: TISSUE DENSITY: The breasts are heterogeneously dense, which may obscure small masses. Bilateral Breast Mammographic Findings: No suspicious masses, calcifications or other abnormalities are identified. BI/SCRN MAMM (CAD)W/CHONG BILAT IMPRESSION: No mammographic evidence of malignancy in either breast. OVERALL FINAL ASSESSMENT BI-RADS 1: NEGATIVE. RECOMMENDATION: Routine annual follow-up in 1 Year A letter with findings and recommendations will be mailed to the patient. Reading Location: [id number]
== END | disposition home or self-care (01) ==
LOC: OPBI 11:50
PROVIDERS: PCP Family Medicine; Referring Provider Family Medicine; Visit Provider Family Medicine
DX: Z12.31 Encounter for screening mammogram for malignant neoplasm of breast (principal)
CPT/HCPCS: 77063; 77067

== ENCOUNTER → 2025-06-12 | Outpatient (CLI) | payer MEDICARE, BC, SELFPAY ==
[2025-06-12 18:13] LABS: Hematocrit 40.1 % (37-47); Hemoglobin 12.7 g/dL (12.0-15.0); Immature Granulocytes Count 0.010 X10^3/uL (0.0-0.0); Mean Corp Hgb Conc 31.7 g/dL (32-36); Mean Corpuscular Volume 96.9 fL (81-99); Mean Platelet Vol. 10.8 fl (6.2-12.0); NRBC Flagged by Analyzer 0 % (0-5); Platelet Count 263 K/mm3 (150-450); RBC Distribution Width CV 13.2 % (11.6-14.6); RBC Distribution Width SD 47.3 fl (35.1-43.9); Red Blood Count 4.14 M/mm3 (4.2-5.4); White Blood Count 6.3 K/mm3 (4.4-11.0)
[2025-06-12 18:22] LABS: AST(SGOT) 55 U/L (<=31); Alanine Aminotransfer ALT/SGPT 90 U/L (<=34); Albumin, Serum 4.0 g/dL (3.4-4.8); Alkaline Phosphatase 103 U/L (35-104); Anion Gap 12 (5-15); BUN 31 mg/dL (4-19); BUN/Creat Ratio 39.7 RATIO (10-20); Calcium,Total 9.3 mg/dL (7.6-11.0); Carbon Dioxide 22.1 mmol/L (21.0-32.0); Chloride 104 mmol/L (98-108); Cholesterol 134 mg/dL (<=200); Globulin 2.6 g/dL (2.2-4.2); Glucose 79 mg/dL (70-99); Low Density Lipoprotein Calc. 59 mg/dL; Potassium 3.9 mmol/L (3.3-5.1); Triglycerides 86 mg/dL; Very Low Density Lipoprotein 17 mg/dL (5-40); cholesterol:hdl ratio screen 2.33
[2025-06-12 18:25] LABS: Free T3 2.3 pg/mL (2.18-3.98); Vitamin D,25 Hydroxy 46.7 ng/mL (30-100)
--- OUTSIDE RECORDS SUMMARY | 2025-06-12 20:15 | XMS RPT_ITS | CCD ---
Author Organization [facility] Care Team Providers Care Security Police Officer Name Role Phone Arianna Lowe Primary Care Provider VANESSA WAY Attending Unavailable MALYS, PAYAL DO Consulting Unavailable MALYS, PAYAL DO Referring Unavailable RAYNA, VANESSA E Admitting Unavailable RAYNA, VANESSA Anderson Primary Care Unavailable PROVIDER, UNKNOWN Consulting Unavailable MALYS, PAYAL DO Consulting Unavailable PALMA, LASHAWN DO Admitting Unavailable PALMA, LASHAWN DO Primary Care Unavailable PALMA, LASHAWN DO Attending Unavailable PROVIDER, UNKNOWN Consulting Unavailable MALYS, PAYAL DO Consulting Unavailable MALYS, PAYAL DO Attending Unavailable MALYS, PAYAL DO Admitting Unavailable MALYS, PAYAL DO Primary Care Unavailable PROVIDER, UNKNOWN Consulting Unavailable Malys, Payal Referring Unavailable Malys, Payal Attending Unavailable Malys, Payal Primary Care Unavailable Allergies Allergy Classification Reported Allergen(s) Allergy Type Date of Onset Reaction(s) Facility (1 source) Acetaminophen / oxyCODONE Drug Allergy [facility] Repository (1 source) Acetaminophen / Propoxyphene Drug Allergy [facility] Repository (1 source) Penicillin Drug Allergy [facility] Repository Problems Active Problems Problem Classification Problem Date Documented Date Episodic/Chronic Other acquired deformities (1 source) Other forms of scoliosis, thoracic region; Translations: [Other forms of scoliosis, thoracic region] Onset: 02-10-2024 Chronic Other screening for suspected conditions (not mental disorders or infectious disease) (1 source) Encounter for screening mammogram for malignant neoplasm of breast; Translations: [Encounter for screening mammogram for malignant neoplasm of breast] Onset: 06-10-2025 Episodic Spondylosis; intervertebral disc disorders; other back problems (1 source) Other intervertebral disc degeneration, thoracic region; Translations: [Other intervertebral disc degeneration, thoracic region] Onset: 02-10-2024 Chronic Past or Other Problems Problem Classification Problem Date Documented Da te Episodic/Chronic Other fractures (3 sources) Wedge compression fracture of T11-T12 vertebra, initial encounter for closed fracture; Translations: [Wedge compression fracture of T11-T12 vertebra, initial encounter for closed fracture] Onset: 02-10-2024 Episodic Results Test Name Value Interpretation Reference Range Facility T3, FREE [CCL]on 08-21-2024 Free T3 [Mass/Vol] 2.4 pg/mL Normal 2.3-4.1 [facility] Comment on above: Result Comment: [facility] [address] [place] [address] kAash Wesley III, M.D. [id number] Performed By: #### 2 85332 #### [facility],[address] [place] [address] T4-FREE (FREE THYROXINE)on Free T4 [Mass/Vol] 0.95 ng/dL Normal 0.76 - 1.46 [facility] Comment on above: Result Comment: P otential of falsely elevated results when biotin concentrations are > 10 ng/mL. Performed By: #### 2 74483 #### [address] [address] TSHon 08-21-2024 TSH Qn 1.13 m[IU]/L Normal 0.35 - 3.74 [facility] Comment on above: Performed By: #### 2 99584 #### [facility],[address] [place] [address] 32366 CBC + DIFFon 02-29-2024 Baso # 0.02 x10EE3/UL Normal 0.00 - 0.[address] [facility] Comment on above: Performed By: #### 2 36173 #### [address] [address] Basophils/100 WBC (Bld) 0.3 % Normal 0.0 - 2.0 [facility] Comment on above: Performed By: #### 2 97332 #### [facility],[address] [place] [address]8 CBC + DIFF Normal [facility] Comment on above: Result Comment: CBC- COMPLETE BLOOD COUNT Performed By: #### 2 16077 #### [facility],[address] [place] [address] EO # 0.12 x10EE3/UL Normal 0.00 - 0.[address] [facility] Comment on above: Performed By: #### 2 84723 #### [facility],[address] [place] [address]20 Eosinophils/100 WBC (Bld) 2.0 % Normal 0.0 - 7.0 [facility] Comment on above: Performed By: #### 2 39434 #### [facility],[address] [place] [address]108 Erythrocyte distribution width (RBC) [Ratio] 13.4 % Normal 12.0 - 15.6 [facility] Comment on above: Performed By: #### 2 55077 #### [facility],[address] [place] [address]19 Hematocrit (Bld) [Volume fraction] 45.8 % Normal 34.0 - 46.0 [facility] Comment on above: Performed By: #### 2 10667 #### [facility],[address] [place] [address]75 Hemoglobin (Bld) [Mass/Vol] 14.7 g/dL Normal 12.0 - 16.0 [facility] Comment on above: Performed By: #### 2 89805 #### [facility],[address] [place] [address] Lymph # 1.78 x10EE3/UL Normal 0.80 - 2.[address] [facility] Comment on above: Performed By: #### 2 24717 #### [facility],[address] [place] [address] 80444 Lymphocytes/100 WBC (Bld) 28.7 % Normal 20.0 - 45.0 [facility] Comment on above: Performed By: #### 2 88880 #### [facility],[address] [place] [address]294 MANUAL DIFF N/A Normal [facility] Comment on above: Performed By: #### 2 31006 #### [facility],[address] [place] [address] MCH (RBC) [Entitic mass] 31 pg Normal 27 - 33 [facility] Comment on above: Performed By: #### 2 15086 #### [facility],[address] [place] [address] MCHC 32 X10 3 Normal 32 - 36 [facility] Comment on above: Performed By: #### 2 61273 #### [facility],[address] [place] [address] MCV (RBC) [Entitic vol] 96 fL Normal 80 - 99 [facility] Comment on above: Performed By: #### 2 27239 #### [facility],[address] [place] [address] Lasalle # 0.45 x10EE3/UL Normal 0.20 - 1.[address] [facility] Comment on above: Performed By: #### 2 93954 #### [facility],[address] [place] [address] MONOS % 7.2 % Normal 0.0 - 10.0 [facility] Comment on above: Performed By: #### 2 34753 #### [facility],[address] [place] [address] 612[address] Morphology Valentin (Bld) [Interp] N/A Normal [facility] Comment on above: Performed By: #### 2 12337 #### [facility],[address] [place] [address] 65954 Neut # 3.82 x10EE3/UL Normal 1.50 - 7.[address] [facility] Comment on above: Performed By: #### 2 45451 #### [facility],[address] [place] [address] 07013 Neutrophils/100 WBC (Bld) 61.8 % Normal 46.0 - 76.0 [facility] Comment on above: Performed By: #### 2 54888 #### [facility],[address] [place] [address] PLATELET 251 x10EE3/UL Normal 150 - 450 [facility] Comment on above: Performed By: #### 2 03915 #### [facility],[address] [place] [address] 73150 Platelet mean volume (Bld) [Entitic vol] 7.8 fL Normal 6.6 - 10.5 [facility] Comment on above: Result Comment: AUTO MATED DIFFERENTIAL Performed By: #### 2 63632 #### [facility],[address] [place] [address] 24677 RBC 4.77 x 10EE6/UL Normal 4.10 - 5.30 [facility] Comment on above: Performed By: #### 2 45699 #### [facility],[address] [place] [address] 55490 WBC 6.2 x 10EE3/UL Normal 4.5 - 10.8 [facility] Comment on above: Performed By: #### 2 01132 #### [facility],[address] [place] [address] 10819 CMP with eGFRon 02-29-2024 AGE 69 years Normal [facility] Comment on above: Performed By: #### 2 41627 #### [facility],[address] [place] [address] 37976 Albumin [Mass/Vol] 3.5 g/dL Normal 3.4 - 5.0 [facility] Comment on above: Performed By: #### 2 40523 #### [facility],[address] [place] [address] 69885 Albumin/Globulin [Mass ratio] 1.0 {ratio} Normal 0.9 - 1.6 [facility] Comment on above: Performed By: #### 2 82767 #### [facility],[address] [place] [address] 20099 ALK PHOS 148 U/L High 46 - 116 [facility] Comment on above: Performed By: #### 2 97025 #### [facility],[address] [place] [address] 03821 ALT [Catalytic activity/Vol] 45 U/L Normal 16 - 63 [facility] Comment on above: Performed By: #### 2 17172 #### [facility],[address] [place] [address]3816 Anion gap [Moles/Vol] 11 mmol/L Normal 10 - 20 [facility] Comment on above: Performed By: #### 2 36115 #### [facility],[address] [place] [address] 94419 AST [Catalytic activity/Vol] 33 U/L Normal 13 - 39 [facility] Comment on above: Performed By: #### 2 41714 #### [facility],[address] [place] [address]2640 B/C RATIO 27 ratio Normal 0 - 30 [facility] Comment on above: Performed By: #### 2 10259 #### [facility],[address] [place] [address] 02490 Bilirubin [Mass/Vol] 0.4 mg/dL Normal 0.2 - 1.0 [facility] Comment on above: Performed By: #### 2 55681 #### [facility],[address] [place] [address] 62097 Calcium [Mass/Vol] 9.0 mg/dL Normal 8.5 - 10.1 [facility] Comment on above: Performed By: #### 2 18635 #### [facility],[address] [place] [address] 66361 Chloride [Moles/Vol] 104 mmol/L Normal 98 - 107 [facility] Comment on above: Performed By: #### 2 13479 #### [facility],[address] [place] [address] 26806 CMP with eGFR Normal [facility] Comment on above: Result Comment: COMP REHENSIVE METABOLIC PANEL Performed By: #### 2 58506 #### [facility],[address] [place] [address] CO2 [Moles/Vol] 28.1 mmol/L Normal 21.0 - 32.0 [facility] Comment on above: Performed By: #### 2 71672 #### [place] [address] Creatinine [Mass/Vol] 0.74 mg/dL Normal 0.55 - 1.02 [facility] Comment on above: Performed By: #### 2 17407 #### [facility],[address] [place], [place] [id number] GFR/1.73 sq M.predicted among non-blacks MDRD (S/P/Bld) [Vol rate/Area] mL/min/{1.73_m2} Normal 60 - 999 [facility] Comment on above: Performed By: #### 2 92208 #### [place] [id number] Result Comment: ACCO RDING TO THE NATIONAL KIDNEY DISEASE EDUCATION PROGRAM(NKDE), A NORMAL eGFR IS A VALUE GREATER THAN OR EQUAL TO 60 ML/MIN/1.73 SQ METERS. CHRONIC KIDNEY DISEASE: <60mL/MIN/1.73 SQ METERS KIDNEY FAILURE: <15mL/MIN/1.73 SQ METERS THIS TEST SHOULD ONLY BE USED FOR PATIENTS 18 YEARS OF AGE AND OLDER. Globulin (S) [Mass/Vol] 3.6 g/dL Normal 1.5 - 3.8 [facility] Comment on above: Performed By: #### 2 79091 #### [place] [id number] Glucose [Mass/Vol] 93 mg/dL Normal 74 - 106 [facility] Comment on above: Performed By: #### 2 80009 #### [facility],[address] [place] [address] 57136 Potassium [Moles/Vol] 3.7 mmol/L Normal 3.5 - 5.1 [facility] Comment on above: Performed By: #### 2 86116 #### [facility],[address] [place] [address] 50827 Protein [Mass/Vol] 7.1 g/dL Normal 6.4 - 8.2 [facility] Comment on above: Performed By: #### 2 76167 #### [facility],[address] [place] [address]70 Sodium [Moles/Vol] 139 mmol/L Normal 136 - 145 [facility] Comment on above: Performed By: #### 2 28879 #### [facility],[address] [place] [address] 36076 Urea nitrogen [Mass/Vol] 20 mg/dL High 7 - 18 [facility] Comment on above: Performed By: #### 2 54713 #### [facility],[address] [place] [address] CHEST (PE PROTOCOL)on CT CHEST (PE PROTOCOL) [place] [address] Patient: ENRICO LINDSEY Phone#: : 1955 Age: 69 Gender: F Pt. Type: ER Account: [id number] Location: [facility] Ordering: VANESSA WAY Exam Date: 02/29/2024/10:54 Family Phys: PAYAL TAN Charge Code: [id number] Physician: Paulding Order #: [id number] Dose#: 7.5 mGy PROCEDURE: CT CHEST WITH CONTRAST FOR PE COMPARISON: [facility], MR, LUMBAR SPINE W/O CONT, 02/10/2024, 10:29. INDICATIONS: Chest pain. TECHNIQUE: After obtaining the patient's consent, CT images were obtained with non-ionic intravenous contrast material. Multi-planar images were created to optimize visualization of vascular anatomy with MPR/MIPS and 3D imaging. All CT scans at this facility use dose modulation, iterative reconstruction, and/or weight based dosing when appropriate to reduce radiation dose to as low as reasonably achievable. IV CONTRAST: Omnipaque 350,100ml TOTAL DOSE: 7.5 CTDIvol(mGy) FINDINGS: VASCULATURE: No pulmonary embolism. AORTA: No aortic aneurysm. LUNGS: Chronic interstitial changes. No acute focal pulmonary parenchymal abnormality. KALEY: Normal. No mass or adenopathy. MEDIASTINUM: Normal. No mass or adenopathy. CARDIAC: Cardiomegaly. PLEURA: Normal. No mass or effusion. CHEST WALL: Bilateral breast implants LIMITED ABDOMEN: Surgical clips in the left upper quadrant. Small hiatal hernia. Atrophy of the pancreas. Incompletely imaged abdominal wall defect containing herniated fat, the abdominal wall defect and contents is incompletely imaged on this exam. BONES: Stable mild superior endplate compression deformity of T11 and T12. There is levoscoliosis of the upper thoracic spine and dextroscoliosis of the lower thoracic spine. There is associated degenerative changes. No rib fracture. OTHER: Negative. CONCLUSION: Continued Report - Page 2 of 2 Patient: ENRICO LINDSEY Phone#: : 1955 Age: 69 Gender: F Pt. Type: ER Account: [id number] Location: [facility] Ordering: VANESSA WAY Exam Date: 02/29/2024/10:54 Family Phys: PAYAL CERVANTESLUIZA Charge Code: [id number] Physician: Paulding Order #: [id number] Dose#: 7.5 mGy 1. No pulmonary embolism 2. No acute pulmonary parenchymal abnormality. Dictated by: Perla Cobb MD on 02/29/2024 at 11:25 Approved by: Perla Cobb MD on 02/29/2024 at 11:34 Normal [facility] D-DIMER, QUANTITATIVEon 05-0 D-DIMER QUANT 240 ng/ml High 0 - 230 [facility] Comment on above: Performed By: #### 2 31125 ####[facility],[address] [place] [address]203 D-DIMER, QUANTITATIVE Normal [facility] Comment on above: Result Comment: UNRULY T D-DIMER Performed By: #### 2 32615 ####[facility],[address] [place] [address] 62774 NT-proBNPon 02-29-2024 Natriuretic peptide B (Bld) [Mass/Vol] 88 pg/mL Normal 0 - 125 [facility] Comment on above: Performed By: #### 2 44412 #### [facility],[address] [place] [address] 73368 RIBS RT UNILAT W/CHEST EXPIR ATIONon 02-29-2024 RIBS RT UNILAT W/CHEST EXPIRATION [address] [address] Patient: ENRICO LINDSEY Phone#: : 1955 Age: 69 Gender: F Pt. Type: ER Account: [id number] Location: [facility] Ordering: VANESSA WAY Exam Date: 02/29/2024/9:29 Family Phys: PAYAL TAN Charge Code: [id number] Physician: Paulding Order #: [id number] Dose#: PROCEDURE: X-RAY RIBS RT UNILAT WITH EXPIRATION CHEST COMPARISON: [facility], XR, RIBS LT UNILAT W/CHEST EXPIRATION, 08/02/2015, 9:35. INDICATIONS: Injury. FINDINGS: LUNGS: Chronic interstitial changes. No significant pulmonary parenchymal abnormalities. VASCULATURE: Normal. Unremarkable pulmonary vasculature. CARDIAC: Normal. No cardiac silhouette abnormality or cardiomegaly. MEDIASTINUM: Normal. No visible mass or adenopathy. PLEURA: Normal. No effusion or pleural thickening. BONES: S-shaped scoliosis of the thoracic spine. No appreciable rib fracture. OTHER: Surgical clips in the right upper quadrant. Surgical clips in the left upper quadrant. CONCLUSION: 1. No appreciable rib fracture. Note: A nondisplaced fracture may not be evident on radiograph. Dictated by: Perla Cobb MD on 02/29/2024 at 11:17 Approved by: Perla Cobb MD on 02/29/2024 at 11:23 Normal [facility] TROPONIN I, HIGH SENSITIVITY on 02-29-2024 HS TROPONIN 6.5 pg/mL Normal 0.0 - 51.4 [facility] Comment on above: Performed By: #### 2 62770 #### [facility],[address] [place] [address] HS TROPONIN 4.8 pg/mL Normal 0.0 - 51.4 [facility] Comment on above: Performed By: #### 2 97037 ####[facility],[address] [place], [place] [id number] MR LUMBAR SP WO CONTRASTon 0 02-10-2024 MR LUMBAR SP WO CONTRAST [place] [address] Patient: ENRICO LINDSEY Phone#: : 1955 Age: 68 Gender: F Pt. Type: Out Account: [id number] Location: [facility] Ordering: LASHAWN PALMA Exam Date: 02/10/2024/10:29 Family Phys: Charge Code: [id number] Physician: Paulding Order #: [id number] Dose#: PROCEDURE: MRI LUMBAR SPINE WITHOUT CONTRAST COMPARISON: [facility], , LUMBAR SPINE W/O CONT, 07/06/2023, 9:39. INDICATIONS: Low-back pain TECHNIQUE: A variety of imaging planes and parameters were utilized for visualization of suspected pathology. FINDINGS: PARASPINAL AREA: Normal with no visible mass. BONES: Loss of height at T11 is similar to prior exam . A Schmorl's node is present at the superior endplate. At T12 there is loss of height and abnormal marrow signal at the superior endplate. This is a new finding since July 06, 2023 and consistent with compression fracture. There is dorsally displaced fragment at the superior endplate projecting into the spinal canal by 4 millimeters. CORD/CAUDA EQUINA: Normal caliber, contour, and signal intensity. LUMBAR DISC LEVELS: L1-L2: Annular disc bulging is present. There is bright signal dorsally consistent with annular rupture. L2-L3: Mild annular disc bulging is present. The foramina are patent. L3-L4: No significant disc/facet abnormality, spinal stenosis, or foraminal stenosis. L4-L5: Disc space narrowing and disc degeneration is present. L5-S1: No significant disc/facet abnormality, spinal stenosis, or foraminal stenosis. CONCLUSION: 1. New compression fracture at the superior endplate of T12. There is 4 millimeter posterior projection of a superior endplate fragment. 2. Mild annular disc bulging at L1-2 and L2-3. Dictated by: Penny Hendrix MD on 02/10/2024 at 16:54 Approved by: Penny Hendrix MD on 02/10/2024 at 17:09 Normal [facility] MR THORACIC SP W/O CONTRASTo n 02-10-2024 MR THORACIC SP W/O CONTRAST [place] [address] Patient: ENRICO LINDSEY Phone#: : 1955 Age: 68 Gender: F Pt. Type: Out Account: [id number] Location: [facility] Ordering: LASHAWN PALMA Exam Date: 02/10/2024/11:00 Family Phys: Charge Code: [id number] Physician: Paulding Order #: [id number] Dose#: PROCEDURE: MRI THORACIC SPINE WITHOUT CONTRAST COMPARISON: [facility], , THORACIC SPINE W/O CONTRAST, 07/06/2023, 9:39. INDICATIONS: Back pain TECHNIQUE: A variety of imaging planes and parameters were utilized for visualization of suspected pathology. Images were performed without contrast. FINDINGS: PARASPINAL AREA: Normal with no visible mass. Foci of abnormal signal at the kidneys bilaterally, likely cysts. DISCS: No significant disc/facet abnormality, spinal stenosis, or foraminal stenosis. BONES: Loss of height involving the superior endplate at T11 is present and similar to prior exam. There is new loss of height superior endplate T12. There is transverse abnormal signal consistent with compression fracture. There is minimal dorsal displacement of a superior endplate fragment, approximately 4 millimeters. CORD: Normal caliber, contour, and signal intensity. OTHER: An arachnoid cyst is present in the right neural foramen at T7. CONCLUSION: 1. New compression fracture at the superior endplate of T12. There is dorsal displacement of the superior endplate fragment. 2. Chronic compression at T11. Dictated by: Penny Hendrix MD on 2024 at 14:05 Approved by: Penny Hendrix MD on 2024 at 14:32 Normal [facility] Absolute lymphocyte countOrd ered By: Dr. Tan on 01-31-2023 Lymphocytes Auto (Unsp spec) [#/Vol] 2.56 10*3/uL 0.83-4.51 [facility] Basophil percentageOrdered B y: Dr. Tan on 01-31-2023 Basophils/100 WBC (Bld) 0.3 % 0-1 [facility] Bilirubin [Mass/Vol] 0.50 mg/dL 0.20-1.00 [facility] Comment on above: For patients on eltr ombopag therapy, use of Dimension [place] TBIL is not recommended. Chloride [Moles/Vol] 109 mmol/L 98-107 [facility] Eosinophils/100 WBC (Bld) 1.2 % 0-5 [facility] Glucose [Mass/Vol] 90 mg/dL 74-106 [facility] Neutrophils (Bld) [#/Vol] 3.6 10*3/uL 2.0-7.7 [facility] Neutrophils/100 WBC (Bld) 54.1 % 47-70 [facility] Potassium [Moles/Vol] 3.8 mmol/L 3.5-5.1 [facility] Protein [Mass/Vol] 7.8 g/dL 6.4-8.2 [facility] Sodium [Moles/Vol] 141 mmol/L 136-145 [facility] WBC (Bld) [#/Vol] 6.6 10*3/uL 4.4-11.0 [facility] Blood erythrocytes count (nu mber/volume)Ordered By: Dr. Tan on 01-31-2023 RBC (Bld) [#/Vol] 4.65 10*6/uL 4.2-5.4 [facility] Blood hemoglobin measurement (mass/volume)Ordered By: Dr. Tan on 01-31-2023 Hemoglobin (Bld) [Mass/Vol] 14.7 g/dL 12.0-15.0 [facility] Blood lymphocytes/100 leukoc ytesOrdered By: Dr. Tan on 01-31-2023 Lymphocytes/100 WBC (Bld) 38.7 % 19-41 [facility] Blood monocytes/100 leukocyt esOrdered By: Dr. Tan on 01-31-2023 Monocytes/100 WBC (Bld) 5.4 % 0-10 [facility] Blood platelet mean volumeOr dered By: Dr. Tan on 01-31-2023 Platelet mean volume (Bld) [Entitic vol] 10.8 fL 6.2-12.0 [facility] Determination of erythrocyte mean corpuscular volume (MCV)Ordered By: Dr. Tan on 01-31-2023 MCV (RBC) [Entitic vol] 101.9 fL 81-99 [facility] Erythrocyte sedimentation ra teOrdered By: Dr. Tan on 01-31-2023 ESR (Bld) [Velocity] 12 mm/h 0-30 [facility] Hematocrit Auto (Bld) [Volum e fraction]Ordered By: Dr. Tan on 01-31-2023 Hematocrit (Bld) [Volume fraction] 47.4 % 37-47 [facility] Iron measurement (mass/mass) Ordered By: Dr. Tan on 01-31-2023 Iron (Unsp spec) [Mass/Mass] 108 ug/dL 50-170 [facility] Laboratory - Chemistry and C hemistry - challengeOrdered By: Dr. Tan on 01-31-2023 ALP [Catalytic activity/Vol] 104 U/L 45-117 [facility] ALT [Catalytic activity/Vol] 40 U/L 13-56 [facility] CO2 [Moles/Vol] 26.0 mmol/L 21.0-32.0 [facility] Cobalamin (Vitamin B12) [Mass/Vol] 305 pg/mL 211-911 [facility] Free T4 [Mass/Vol] 1.19 ng/dL 0.76-1.46 [facility] Globulin (S) [Mass/Vol] 4.2 g/dL 2.2-4.2 [facility] Urea nitrogen/Creatinine [Mass ratio] 20.4 mg/mg 10-20 [facility] - Hematology and Cell countsOrdered By: Dr. Tan on 01-31-2023 Erythrocyte distribution width (RBC) [Entitic vol] 48.0 fL 35.1-43.9 [facility] Erythrocyte distribution width (RBC) [Ratio] 12.7 % 11.6-14.6 [facility] Immature granulocytes/100 WBC (Bld) 0.300 % 0.0-0.9 [facility] Comment on above: IG% - Immature Granu locytes (promyelocytes, myelocytes and metamyelocytes) > 1% indicates that a LEFT SHIFT is Present. MCH (RBC) [Entitic mass] 31.6 pg 27.0-32.0 [facility] Nucleated RBC/100 WBC (Bld) [Ratio] 0 % 0-5 [facility] MCHC Auto (RBC) [Mass/Vol]Or dered By: Dr. Tan on 01-31-2023 MCHC (RBC) [Mass/Vol] 31.0 g/dL 32-36 [facility] No Panel InformationOrdered By: Dr. Tan on 01-31-2023 C-Reactive Protein High Sensitivity < 0.16 mg/L <3.00 [facility] Comment on above: Low Relative Risk of CVD <1.0 mg/L Average Relative Risk of CVD 1.0 - 3.0 mg/L High Relative Risk of CVD >3.0 mg/L Estimated GFR (MDRD) Amer 87 mL/min >60 [facility] Comment on above: GFR Calc Estimated GFR (MDRD) Non-Af Amer 72 mL/min >60 [facility] Comment on above: Non- GFR Calc Free Triiodothyronine (T3) pg/dL 2.1 pg/mL 2.18-3.98 [facility] Thyroid Stimulating Hormone (TSH) 0.61 uIU/mL 0.358-3.74 [facility] Vitamin D 25-Hydroxy 32.0 ng/mL [facility] Comment on above: Vitamin D 25(OH) Sta tus Range Deficiency <20 ng/mL (50nmol/L) Insufficiency 20 - 30 ng/mL (50 - 75 nmol/L) Sufficiency 30 - 100 ng/mL (75 - 250 nmol/L) Toxicity >100 ng/mL (>250 nmol/L) Platelets bldOrdered By: Dr. Tan on 01-31-2023 Platelets (Bld) [#/Vol] 267 10*3/uL 150-450 [facility] Serum or plasma albumin hong urement (mass/volume)Ordered By: Dr. Tan on 01-31-2023 Albumin [Mass/Vol] 3.6 g/dL 3.2-5.0 [facility] Serum or plasma albumin/glob ulin mass ratioOrdered By: Dr. Tan on 01-31-2023 Albumin/Globulin [Mass ratio] 0.9 {ratio} 0.9-2.4 [facility] Serum or plasma calcium hong urement (mass/volume)Ordered By: Dr. Tan on 01-31-2023 Calcium [Mass/Vol] 9.0 mg/dL 8.5-10.1 [facility] Serum or plasma creatinine m easurement (mass/volume)Ordered By: Dr. Tan on 01-31-2023 Creatinine [Mass/Vol] 0.83 mg/dL 0.55-1.02 [facility] Comment on above: The validity of the calculated GFR & GFRAA in patients over 70 years has not been determined. Clinical correlation is essential. Serum or plasma ferritin cara surement (mass/volume)Ordered By: Dr. Tan on 01-31-2023 Ferritin [Mass/Vol] 15 ng/mL 8-252 [facility] Serum or plasma urea nitroge n measurement (mass/volume)Ordered By: Dr. Tan on 01-31-2023 Urea nitrogen [Mass/Vol] 17 mg/dL 7-18 [facility] Thin prep Papanicolaou smear with manual screeningOrdered By: Dr. Tan on 01-31-2023 Thin prep Papanicolaou smear with manual screening 32 U/L 15-37 [facility] Thin prep Papanicolaou smear with manual screening 6 5-15 [facility] Otheron 03-05-2003 CONVERTED ELECTRONIC SIGNATURE ALISA DHILLON M.D. (Electronic signature on file) Final Signed Out: 03/05/2003 15:40 [facility] CONVERTED FINAL DIAGNOSIS A. CORE BIOPSY OF LIVER - MILD STEATOSIS. COMMENT - No Alvina's hyaline or portal or lobular inflammatory process is identified. The trichrome and reticulin stains reveal no perisinusoidal fibrosis or other architectural abnormality. The iron stain shows no increase in iron stores and the PAS/Diastase stain reveals no unusual granules. B. APPENDECTOMY - NO DIAGNOSTIC ABNORMALITY. [facility] CONVERTED ORDERING PROVIDER Ordering Provider: IVET GAINES [facility] Encounters Encounter Date Encounter Type Care Provider Facility Start: 06-12-2025 ambulatory [facility] Facility:[facility] Start: 08-21-2024 End: 08-21-2024 [facility] Start: 02-29-2024 End: 02-29-2024 Emergency department patient visit VANESSA Anderson RAYNA [facility] Start: 02-10-2024 End: 02-10-2024 ambulatory [facility] Start: 01-31-2023 End: 01-31-2023 ambulatory [facility] Work Phone: Start: 01-31-2023 End: 01-31-2023 Patient encounter procedure [facility] Neela Addi [facility] Start: 03-01-2022 End: 03-01-2022 Patient encounter procedure [facility] Start: 03-04-2003 End: 03-04-2003 Patient encounter procedure Ivet Gaines Work Phone: [facility] Start: 03-04-2003 Results Only Ivet goodwin Work Phone: [facility] Procedures Date Procedure Procedure Detail Performing Clinician Start: 03-01-2022 Screening mammography Start: 03-04-2003 CONVERTED SURGICAL PATHOLOGY Ivet Gaines Work Phone: Payers Date Payer Category Payer Medicare [id number] 2025 Self-pay [id number] 2025 Unknown [id number] 1955 Unknown [id number] 1955 Unknown [id number] 1955 Unknown [id number] Private Health Insurance [id number] Unknown [id number] [facility] [id number] Unknown [id number] Social History Date Type Detail Facility Tobacco smoking stat [facility] Unknown if ever smoked [facility] Sex Assigned At Not on file [facility] Start: 1955 Sex Assigned At Female W [facility] Evaluation note Note Date & Type Note Facility Evaluation note No assessment information availa ble [facility] Work Phone: Chief Complaint and Reason for Visit Chief Complaint SCREENING Summary Purpose Family History No Family History Records FoundNo Family History Records Found Advance Directives No Advanced Directives Records FoundNo Advanced Directives Records Found Additional Source Comments Source Comments (unrecognize d section and content) In the event this informatio n is protected by the Federal Confidentiality of Alcohol and Drug Abuse Patient Records regulations: The Federal rules restrict any use of the information to criminally investigate or prosecute any alcohol or drug abuse patient.[facility] Goals (unrecognized section and content) Goals may be documented in a n alternate sectionGoals may be documented in an alternate section Care Teams (unrecognized sec tion and content) Team Status: Active Member Role Status Dates Dr. Payal Tan DO Family Provider Active Dr. Payal Tan DO Primary Care Provider Active Team Status: Inactive Member Role Status Dates Dr. Payal Tan DO Primary Care Provide r, Attending Provider, Referring Provider Active INFORMATION SOURCE (unrecogn ized section and content) DATE CREATED AUTHOR 08/23/2024 [facility] DATE CREATED AUTHOR AUTHOR'S ORGANIZ ATION 06/11/2025 [facility] FOR RECORDS PERTAINING TO PATIENTS WHO ARE OR HAVE BEEN ENROLLED IN A CHEMICAL DEPENDENCY/SUBSTANCEABUSE PROGRAM, SOME INFORMATION MAY BE OMITTED. This clinical summary was aggregated from multiple sources. Caution should be exercised in using it in the provision of clinical care. This summary normalizes information from multiple sources, and as a consequence, information in this document may materially change the coding, format and clinical context of patient data. In addition, data may be omitted in some cases. CLINICAL DECISIONS SHOULD BE BASED ON THE PRIMARY CLINICAL RECORDS. [facility] [employer] provides no warranty or guarantee of the accuracy or completeness of information in this document.
== END | disposition home or self-care (01) ==
LOC: BFHLAB 13:58
PROVIDERS: PCP Family Medicine; Visit Provider Family Medicine
DX: E03.9 Hypothyroidism, unspecified (principal); E55.9 Vitamin D deficiency, unspecified; E78.5 Hyperlipidemia, unspecified; Z51.81 Encounter for therapeutic drug level monitoring
CPT/HCPCS: 36415; 80053; 80061; 82306; 84439; 84443; 84481; 85025